=== PATIENT | female | born 1965 | race Caucasian/White ===

== ENCOUNTER 2017-07-14 06:47 | Day surgery (SDC) | payer OTHER ==
[~2017-07-14 06:47] MED LIST: LIDOCAINE HCL 1% MPF SOL ONE; PROPOFOL 500 MG/50 ML EMU IV ONE
[2017-07-14 09:01] VITALS: BP 117/78; PULSE 54; RESP 20; TEMP 97.3; O2SAT 100
== END 2017-07-14 09:15 | disposition home or self-care (01) | DRG 951 ==
LOC: SURG 06:47
PROVIDERS: ATTEND Surgery
DX: Z12.11 Encounter for screening for malignant neoplasm of colon (principal)
CPT/HCPCS: J2001; J2704